=== PATIENT | male | born 1930 | race Caucasian/White ===

== ENCOUNTER 2020-06-09 08:59 | Emergency (ER) | payer OTHER ==
[2020-06-09 09:28] LABS: Absolute Lymphocytes (CBC) 0.9 K/uL (0.7-4.9); Basophils % 0.3 % (0-1.3); Hematocrit 45.6 % (39.6-49.0); Lymphocytes % 9.5 % (15.3-44.8); MPV 7.5 fL (7.6-11.3); RBC Red Blood Cell Count 5.02 M/uL (4.33-5.43)
[2020-06-09 09:32] LABS: Protime INR 1.33
[2020-06-09 09:50] LABS: Albumin 3.7 g/dL (3.4-5.0); Bilirubin Direct 0.3 mg/dL (0-0.2); Magnesium 2.1 mg/dL (1.8-2.4); Potassium 4.1 mmol/L (3.5-5.1); Protein, Total 8.4 g/dL (6.4-8.2); Troponin (Emerg Dept Use Only) 0.02 ng/mL (0.0-0.045)
[2020-06-09] MEDS ORDERED: NA CHLORIDE 0.9% 500 ML ONE ×2 (10:16→13:10)
[2020-06-09] MEDS ORDERED: FENTANYL CITR 100 MCG/2 ML ONE (10:16)
[2020-06-09] MEDS ORDERED: ONDANSETRON 4 MG/2 ML VIAL ONE (10:16)
--- NOTE | 2020-06-09 10:58 | RAD REPORT ---
EXAM DESCRIPTION: CT - Chest For Pe Angio - 06/09/2020 10:29 am CLINICAL HISTORY: Chest pain. Chest pain;SOB COMPARISON: Abdomen Pelvis W Contrast dated 06/09/2020 TECHNIQUE: CT angiogram of the pulmonary arteries was performed with MIP. All CT scans are performed using dose optimization technique as appropriate and may include automated exposure control or mA/KV adjustment according to patient size. FINDINGS: Acute pulmonary embolism is identified involving the right middle lobe segmental pulmonary arterial branch. Small subsegmental pulmonary arterial thromboemboli may be present in the posterior left lower lobe branches. No right heart strain pattern is observed. No acute aortic finding demonstrated. Diffuse COPD is present. Opacity is noted in the right middle lobe laterally adjacent to the pleura m easuring 32 mm with internal lucency, possibly pulmonary infarct. Small right pleural effusion is noted. No left-sided pleural effusion. No concerning bony finding. IMPRESSION: Acute pulmonary thromboembolism is seen involving the right middle lobe pulmonary arteri al segment branch. Suspected 3 cm area of peripherally located pulmonary infarct in the right middle lobe. Small right pleural effusion.
--- NOTE | 2020-06-09 10:58 | RAD REPORT ---
EXAM DESCRIPTION: RAD - Chest Single View - 06/09/2020 10:39 am CLINICAL HISTORY: CHEST PAIN Chest pain. COMPARISON: No comparisons FINDINGS: Portable technique limits examination quality. Emphysematous changes are present throughout the lungs. Small right pleural effusion is noted. The he art is normal in size. Aortic atherosclerosis.
--- NOTE | 2020-06-09 11:09 | RAD REPORT ---
EXAM DESCRIPTION: CTAbdomen Pelvis W Contrast - 06/09/2020 10:29 am CLINICAL HISTORY: Abdominal pain. ABD PAIN COMPARISON: Chest For Pe Angio dated 06/09/2020 TECHNIQUE: Biphasic CT imaging of the abdomen and pelvis was performed with 100 ml non-ionic IV cont rast. All CT scans are performed using dose optimization technique as appropriate and may include automated exposure control or mA/KV adjustment according to patient size. FINDINGS: Small right pleural effusion is seen with peripherally located opacity in the right middle lobe. Please refer to recent CT chest study for full details of intrathoracic findings. No aggressive liver lesion or biliary dilatation. The spleen, pancreas and adrenal glands are within normal limits. 26 mm cyst is present right kidney. Focal defect inferior anterior aspect left kidney, chronic. No bowel obstruction, free air, free fluid or abscess. Moderate rectosigmoid fecal retention. Right-s ided inguinal hernia is present containing several loops of small bowel and fluid suspicious for inca rcerated hernia. The appendix is not identified as a discrete structure, however, no secondary findin gs of appendicitis are identified. Small fat containing left inguinal hernia. No evidence of signifi cant lymphadenopathy. Aortoiliac atherosclerosis. Bilateral total hip arthroplasties are present. IMPRESSION: Suspected incarcerated right inguinal hernia. No bowel obstruction is evident.
--- NOTE | 2020-06-09 11:18 | EDPHYS ---
Physician Documentation [facility] Name: Nato Bueno Age: 89 yrs Sex: Male : 1930 Arrival Date: 06/09/2020 Time: 09:00 Bed 2 Private MD: ED Physician Earle Myers HPI: 06/09 09:15 This 89 yrs old Male presents to ER via Wheelchair with complaints of Chest pm1 Pain, Shortness of breath. 09:15 The patient or guardian reports chest pain that is located primarily in the anterior pm1 aspect of right upper chest. Onset: this morning, at 06:00. The pain radiates to right back. Associated signs and symptoms: Pertinent positives: shortness of breath. The chest pain is described as sharp. Duration: The patient or guardian reports a single episode, that is still ongoing. Modifying factors: The symptoms are alleviated by nothing. the symptoms are aggravated by nothing. Severity of pain: in the emergency department the pain is unchanged. The patient has not experienced similar symptoms in the past. The patient has not recently seen a physician, the patient's primary care provider is Dr. ADRIANA ying. 89 yo Male presenting to the ER with complaints of shortness of breath and chest pain. Patient with history of smoking in the past and reports shortness of breath present for many months. Reports this morning he had increased shortness of breath and RUQ abdominal pain. RUQ abdominal pain is no longer present and it moved to his right chest. Has a right inguinal hernia for many years that he reduces without any difficulty. Historical: - Allergies: :27 No Known Allergies; sv - Home Meds: 09:17 amlodipine 2.5 mg tab 1 tab once daily [Active]; glipizide 5 mg Oral tr24 1 tab once iw daily [Active]; levothyroxine 88 mcg tab 1 tab once daily [Active]; simvastatin 20 mg Oral tab 1 tab once daily [Active]; tamsulosin 0.4 mg oral cp24 1 cap once daily [Active]; - PMHx: 09:17 Hypertension; Diabetes - NIDDM; Hypothyroidism; prostate cancer; iw - Immunization history:: Adult Immunizations. - Social history:: Smoking status: Patient denies any tobacco usage or history of. ROS: 09:18 Constitutional: Negative for fever, chills, and weight loss, Neck: Negative for injury, pm1 pain, and swelling. 09:18 Back: Negative for injury and pain, MS/Extremity: Negative for injury and deformity, Skin: Negative for injury, rash, and discoloration, Neuro: Negative for headache, weakness, numbness, tingling, and seizure. 09:18 Cardiovascular: Positive for chest pain, Negative for edema. 09:18 Respiratory: Positive for shortness of breath, Negative for cough, sputum production, wheezing. 09:18 Abdomen/GI: Positive for abdominal pain, of the right upper quadrant, Negative for nausea, vomiting, and diarrhea. Exam: 09:18 Constitutional: This is a well developed, well nourished patient who is awake, alert, pm1 and in no acute distress. Head/Face: Normocephalic, atraumatic. Chest/axilla: Normal chest wall appearance and motion. Nontender with no deformity. No lesions are appreciated. 09:18 Back: No spinal tenderness. No costovertebral tenderness. Full range of motion. Skin: Warm, dry with normal turgor. Normal color with no rashes, no lesions, and no evidence of cellulitis. MS/ Extremity: Pulses equal, no cyanosis. Neurovascular intact. Full, normal range of motion. 09:18 Cardiovascular: Rate: tachycardic, Rhythm: regular, Pulses: no pulse deficits are appreciated, Edema: is not appreciated. 09:18 Respiratory: the patient does not display signs of respiratory distress, Respirations: normal, Breath sounds: are clear throughout, Respiratory rate: 21 09:18 Abdomen/GI: Palpation: soft, in all quadrants, mild abdominal tenderness, in the right upper quadrant. 09:18 Neuro: Exam negative for acute changes, Orientation: is normal, Mentation: is normal, Motor: is normal, moves all fours. 11:15 Abdomen/GI: Hernia: noted in the right inguinal area, incarceration, is not pm1 appreciated, tenderness, is not appreciated, Easily reduced without any pain or tenderness. Vital Signs: 10:00 BP 163 / 91; Pulse 102; Resp 21; Pulse Ox 95% on R/A; mh5 10:39 BP 179 / 91; Pulse 115; Resp 21; Temp 97.5; Pulse Ox 94% ; sv 11:00 Pain 2/10; sv 11:21 Weight 88.9 kg (R); sv 11:30 BP 151 / 94; Pulse 105; Resp 21; Pulse Ox 95% ; sv 12:19 BP 132 / 87; Pulse 120; Resp 17; Pulse Ox 95% ; sv 13:45 BP 109 / 83; Pulse 107; Resp 21; Pulse Ox 95% ; sv 14:30 BP 138 / 84; Pulse 117; Resp 20; Temp 97.8(TE); Pulse Ox 91% on R/A; mh5 15:25 BP 136 / 81; Pulse 119; Resp 20; Pulse Ox 94% on R/A; sv 16:38 BP 130 / 84; Pulse 108; Resp 20; Pulse Ox 95% ; sv MDM: 09:07 Patient medically screened. pm1 11:09 Data reviewed: vital signs. pm1 11:09 Counseling: I had a detailed discussion with the patient and/or guardian regarding: the pm1 historical points, exam findings, and any diagnostic results supporting the discharge/admit diagnosis, lab results, radiology results, the need for further work-up and treatment in the hospital, [facility] 14:30 Physician consultation: ER MD Hardy was contacted at 14:31, regarding regarding pm1 transfer, patient's condition, and will see patient in ED. 06/09 09:14 Order name: Basic Metabolic Panel; Complete Time: 10:03 pm1 06/09 09:14 Order name: CBC with Diff; Complete Time: 09:32 pm1 06/09 09:14 Order name: LFT's; Complete Time: 10:03 pm1 06/09 09:14 Order name: Magnesium; Complete Time: 10:03 pm1 06/09 09:14 Order name: NT PRO-BNP; Complete Time: 10:03 pm1 06/09 09:14 Order name: PT-INR; Complete Time: 09:34 pm1 06/09 09:14 Order name: Troponin (emerg Dept Use Only); Complete Time: 10:03 pm1 06/09 09:14 Order name: XRAY Chest (1 view); Complete Time: 11:02 pm1 06/09 09:14 Order name: Lipase; Complete Time: 10:03 pm1 06/09 09:39 Order name: CT Chest For PE Angio; Complete Time: 11:02 pm1 06/09 09:39 Order name: CT Abd/Pelvis - IV Contrast Only; Complete Time: 11:10 pm1 06/09 11:46 Order name: Extrem Venous W Compression Jonnathan US; Complete Time: 12:32 pm1 06/09 12:50 Order name: SARS-COV-2 RT PCR; Complete Time: 12:51 EDMS 06/09 09:14 Order name: EKG; Complete Time: 09:15 pm1 06/09 09:14 Order name: Cardiac monitoring; Complete Time: 09:24 pm1 06/09 09:14 Order name: EKG - Nurse/Tech; Complete Time: 09:24 pm1 06/09 09:14 Order name: IV Saline Lock; Complete Time: 09:24 pm1 06/09 09:14 Order name: Labs collected and sent; Complete Time: 09:24 pm1 06/09 09:14 Order name: O2 Per Protocol; Complete Time: 10:09 pm1 06/09 09:14 Order name: O2 Sat Monitoring; Complete Time: 10:09 pm1 Administered Medications: 10:08 Drug: fentaNYL (PF) 25 mcg {Note: rass1.} Route: IVP; Site: left antecubital; sv 11:00 Follow up: Pain 2/10 Adult; Response: No adverse reaction; Pain is decreased sv 10:08 Drug: Zofran (Ondansetron) 4 mg Route: IVP; Site: left antecubital; sv 11:00 Follow up: Response: No adverse reaction sv 10:09 Drug: NS 0.9% 500 ml Route: IV; Rate: bolus; Site: left antecubital; sv 11:00 Follow up: Response: No adverse reaction; IV Status: Completed infusion; IV Intake: sv 500ml 11:28 Drug: Lovenox 1 mg/kg Route: Sub-Q; Site: left lower abdomen; sv 11:29 Follow up: Response: No adverse reaction sv 13:00 Drug: NS 0.9% 500 ml Route: IV; Rate: bolus; Site: left antecubital; ss 14:01 Follow up: Response: No adverse reaction; IV Status: Completed infusion; IV Intake: sv 500ml Disposition: 18:35 Co-signature as Attending Physician, Earle Myers MD. rn Disposition: 06/09/20 11:17 Transfer ordered to [facility]. Diagnosis is Pulmonary embolism. - Reason for transfer: [facility]. - Accepting physician is [place]. - Condition is Stable. - Problem is new. - Symptoms have improved. Signatures: Dispatcher [employer] Ale Smith RN RN sv Williams, Irene, RN RN iw Nieto, Roman, MD MD rn Smirch, Shelby, RN RN ss Marinas, Patrick, DOMINGO MACHINE OVERHAULER pm1 Corrections: (The following items were deleted from the chart) 12:02 11:22 CORONAVIRUS+MR.LAB.BRZ ordered. [facility] 12:31 11:09 Counseling: I had a detailed discussion with the patient and/or guardian pm1 regarding: the historical points, exam findings, and any diagnostic results supporting the discharge/admit diagnosis, lab results, radiology results, the need for further work-up and treatment in the hospital, [facility], pm1 16:45 11:17 06/09/2020 11:17 Transfer ordered to [facility]. Diagnosis sv is Pulmonary embolism. Reason for transfer: [facility]. Accepting physician is [place]. Condition is Stable. Problem is new. Symptoms have improved. pm1
--- NOTE | 2020-06-09 11:18 | ER ---
Nurse's Notes [facility] Name: Nato Bueno Age: 89 yrs Sex: Male : 1930 Arrival Date: 06/09/2020 Time: 09:00 Bed 2 Private MD: Diagnosis: Pulmonary embolism Presentation: 06/09 09:13 Chief complaint: Patient states: RLQ pain last night, now has right sided chest pain iw and SOB. Ebola Screen: Patient negative for fever greater than or equal to 101.5 degrees Fahrenheit, and additional compatible Ebola Virus Disease symptoms Patient denies exposure to infectious person. Patient denies travel to an Ebola-affected area in the 21 days before illness onset. No symptoms or risks identified at this time. Initial Sepsis Screen: Does the patient meet any 2 criteria? No. Patient's initial sepsis screen is negative. Does the patient have a suspected source of infection? No. Patient's initial sepsis screen is negative. Risk Assessment: Do you want to hurt yourself or someone else? Patient reports no desire to harm self or others. Onset of symptoms was June 08, 2020. 09:13 Method Of Arrival: Wheelchair iw 09:13 Acuity: IBRAHIMA 3 iw 10:43 Coronavirus screen: Client denies travel out of the [place] in the last 14 days. At this sv time, the client does not indicate any symptoms associated with coronavirus-19. Historical: - Allergies: : No Known Allergies; sv - Home Meds: 09:17 amlodipine 2.5 mg tab 1 tab once daily [Active]; glipizide 5 mg Oral tr24 1 tab once iw daily [Active]; levothyroxine 88 mcg tab 1 tab once daily [Active]; simvastatin 20 mg Oral tab 1 tab once daily [Active]; tamsulosin 0.4 mg oral cp24 1 cap once daily [Active]; - PMHx: 09:17 Hypertension; Diabetes - NIDDM; Hypothyroidism; prostate cancer; iw - Immunization history:: Adult Immunizations. - Social history:: Smoking status: Patient denies any tobacco usage or history of. Screenin:25 Abuse screen: Denies threats or abuse. Denies injuries from another. Nutritional sv screening: No deficits noted. Tuberculosis screening: No symptoms or risk factors identified. Fall Risk None identified. Assessment: 09:25 General: Appears in no apparent distress. comfortable, well developed, Behavior is sv calm, cooperative, appropriate for age. Pain: Complains of pain in anterior aspect of right upper chest, right breast and right lower quadrant Pain does not radiate. Pain currently is 5 out of 10 on a pain scale. Pain began 0600 today. Neuro: Level of Consciousness is awake, alert, obeys commands, Oriented to person, place, time, situation, Moves all extremities. Full function Gait is steady. Cardiovascular: Patient's skin is warm and dry. Rhythm is sinus tachycardia. Respiratory: Airway is patent Respiratory effort is even, unlabored, Respiratory pattern is regular, symmetrical. Respiratory: Reports shortness of breath. Derm: Skin is normal. 10:08 Reassessment: Patient appears in no apparent distress at this time. Patient and/or sv family updated on plan of care and expected duration. Pain level reassessed. Patient is alert, oriented x 3, equal unlabored respirations, skin warm/dry/pink. 10:24 Reassessment: Pt currently in CT. sv 12:19 Reassessment: Patient appears in no apparent distress at this time. Patient and/or sv family updated on plan of care and expected duration. Pain level reassessed. Patient is alert, oriented x 3, equal unlabored respirations, skin warm/dry/pink. 13:01 Reassessment: Patient appears in no apparent distress at this time. Patient and/or ss family updated on plan of care and expected duration. Pain level reassessed. Patient is alert, oriented x 3, equal unlabored respirations, skin warm/dry/pink. Patient states feeling better. 14:01 Reassessment: Patient appears in no apparent distress at this time. Patient and/or sv family updated on plan of care and expected duration. Pain level reassessed. Patient is alert, oriented x 3, equal unlabored respirations, skin warm/dry/pink. 15:34 Reassessment: Patient appears in no apparent distress at this time. Patient and/or sv family updated on plan of care and expected duration. Pain level reassessed. Patient is alert, oriented x 3, equal unlabored respirations, skin warm/dry/pink. 16:38 Reassessment: Report given to Elfego from [facility]. sv Vital Signs: 10:00 BP 163 / 91; Pulse 102; Resp 21; Pulse Ox 95% on R/A; mh5 10:39 BP 179 / 91; Pulse 115; Resp 21; Temp 97.5; Pulse Ox 94% ; sv 11:00 Pain 2/10; sv 11:21 Weight 88.9 kg (R); sv 11:30 BP 151 / 94; Pulse 105; Resp 21; Pulse Ox 95% ; sv 12:19 BP 132 / 87; Pulse 120; Resp 17; Pulse Ox 95% ; sv 13:45 BP 109 / 83; Pulse 107; Resp 21; Pulse Ox 95% ; sv 14:30 BP 138 / 84; Pulse 117; Resp 20; Temp 97.8(TE); Pulse Ox 91% on R/A; mh5 15:25 BP 136 / 81; Pulse 119; Resp 20; Pulse Ox 94% on R/A; sv 16:38 BP 130 / 84; Pulse 108; Resp 20; Pulse Ox 95% ; sv ED Course: 09:00 Patient arrived in ED. rg4 09:04 Ale Springer, AMBER is Primary Nurse. sv 09:05 Jeffrey Nguyen NP is PHCP. pm1 09:05 Earle Myers MD is Attending Physician. pm1 09:08 EKG done, by ED staff, reviewed by Jeffrey Nguyen NP. sv 09:15 Triage completed. iw 09:23 Lipase Sent. mh5 09:23 Basic Metabolic Panel Sent. mh5 09:23 CBC with Diff Sent. mh5 09:23 LFT's Sent. mh5 09:23 Magnesium Sent. mh5 09:23 NT PRO-BNP Sent. mh5 09:23 PT-INR Sent. mh5 09:24 Troponin (emerg Dept Use Only) Sent. mh5 09:24 Initial lab(s) drawn, by mi, sent to lab. Inserted saline lock: 20 gauge in left mh5 forearm, using aseptic technique. Blood collected. 09:24 Patient has correct armband on for positive identification. Placed in gown. Bed in low mh5 position. Side rails up X2. Warm blanket given. laboratory monitor on. Pulse ox on. NIBP on. 09:25 Patient maintains SpO2 saturation greater than 95% on room air. sv 09:25 Arm band placed on. sv 10:29 CT Chest For PE Angio In Process Unspecified. EDMS 10:29 CT Abd/Pelvis - IV Contrast Only In Process Unspecified. EDMS 10:[address] from [address]. sv 10:39 XRAY Chest (1 view) In Process Unspecified. EDMS 10:43 Awaiting lab results, Awaiting radiology results. Awaiting re-evaluation by ER provider.sv 11:43 COVID swab sent to lab. sv 12:04 initiated a transfer with Nicole Napoles from the [facility] transfer center. eb 12:14 Extrem Venous W Compression Jonnathan US In Process Unspecified. EDMS 14:[address] Rosalee Sanchez the emergency room doctor second helper for the [facility] with lemuel Murphy Np for patient transfer consultation. 14:19 administrative approval given by Nicole Sharpe/ patient has been accepted to the [facility] Emergency Room/ Rosalee Laura has accepted the patient in transfer/ report to be called to [phone] ext [phone]. 14:35 called the [facility] Emergency Room Notification line at [phone]/ ID# [id number]. eb 15:33 No provider procedures requiring assistance completed. Patient transferred, IV remains sv in place. intact. Administered Medications: 10:08 Drug: fentaNYL (PF) 25 mcg {Note: rass1.} Route: IVP; Site: left antecubital; sv 11:00 Follow up: Pain 2/10 Adult; Response: No adverse reaction; Pain is decreased sv 10:08 Drug: Zofran (Ondansetron) 4 mg Route: IVP; Site: left antecubital; sv 11:00 Follow up: Response: No adverse reaction sv 10:09 Drug: NS 0.9% 500 ml Route: IV; Rate: bolus; Site: left antecubital; sv 11:00 Follow up: Response: No adverse reaction; IV Status: Completed infusion; IV Intake: sv 500ml 11:28 Drug: Lovenox 1 mg/kg Route: Sub-Q; Site: left lower abdomen; sv 11:29 Follow up: Response: No adverse reaction sv 13:00 Drug: NS 0.9% 500 ml Route: IV; Rate: bolus; Site: left antecubital; ss 14:01 Follow up: Response: No adverse reaction; IV Status: Completed infusion; IV Intake: sv 500ml Intake: 11:00 IV: 500ml; Total: 500ml. sv 14:01 IV: 500ml; Total: 1000ml. sv Outcome: 11:17 ER care complete, transfer ordered by . pm1 15:33 Transferred by ground EMS to [facility] Transfer form completed. sv X-rays sent w/ patient. Note: Report given to Talia CLARK 15:33 Condition: stable 15:33 Instructed on the need for transfer. 16:45 Patient left the ED. sv Signatures: Dispatcher [employer] Ale Smith RN RN Rivka Martines RN RN Ashley Hanley RN RN ss Jeffrey Nguyen, INTERNET RETAILER INTERNET RETAILER pm1 Janay Huber 4 Maria Esther Ch[facility] Ana Rosa Fox Corrections: (The following items were deleted from the chart) 10:09 10:08 fentaNYL (PF) 25 mcg IVP in left antecubital sv sv 10:44 10:39 BP 179 / 91; Pulse 115bpm; Resp 21bpm; Temp 97.5F; sv sv 15:33 15:25 BP 136 / 81; Pulse 119bpm; Resp 20bpm; Pulse Ox 90% RA; mh5 sv
[2020-06-09] MEDS ORDERED: ENOXAPARIN 100 MG/ML SYR SQ ONE (11:38)
--- NOTE | 2020-06-09 12:28 | RAD REPORT ---
EXAM DESCRIPTION: US - Extrem Venous W Compress Jonnathan - 06/09/2020 12:21 pm CLINICAL HISTORY: PE R/O DVT Bilateral leg edema and swelling. COMPARISON: No comparisons TECHNIQUE: Real-time sonographic interrogation of the left and right lower extremity deep venous sys tems was performed. FINDINGS: Normal compressibility, flow augmentation, phasic flow and spontaneous flow is identified in both the left and right lower extremity deep venous systems. IMPRESSION: No sonographic evidence of left or right lower extremity deep venous thrombosis.
[2020-06-09 16:56] VITALS: TEMP 97.8
[2020-06-09 16:59] VITALS: BP 130/84; O2SAT 95
[2020-06-10] MEDS ORDERED: METOPROLOL TAR 25 MG TAB ONE (07:02)
--- NOTE | 2020-06-10 16:09 | EKG ---
Test Date: 2020-06-09 Test Time: 09:08:23 Opal Miner: ZANA MEASUREMENT RESULTS: Intervals: Rate: 113 LA: 170 QRSD: 76 QT: 332 QTc: 455 [place]: P: 101 LA: 170 QRS: -62 T: 100 INTERPRETIVE STATEMENTS: Sinus tachycardia with fusion complexes Left anterior fascicular block ST & T wave abnormality, consider inferior ischemia Abnormal ECG No previous ECG available for comparison Electronically Signed On 06-10-20 16:05:45 LAND CHECKER by Norberto Lozano
== END 2020-06-09 16:45 ==
LOC: ER 08:59
DX: I26.99 Other pulmonary embolism without acute cor pulmonale (principal); Z20.828 Contact with and (suspected) exposure to other viral communicable diseases; J44.9 Chronic obstructive pulmonary disease, unspecified; I10 Essential (primary) hypertension; E11.9 Type 2 diabetes mellitus without complications; E03.9 Hypothyroidism, unspecified; Z85.46 Personal history of malignant neoplasm of prostate
CPT/HCPCS: 96361; 93005; 85025; 80048; 36415; 83735; 85610; 80076; 84484; 83690; 83880; 71275; 74177; 71045; 93970; 96375; 96372; 96374; 99285; U0003; Q9967; J3010; J1650; J7040 ×2; J2405